=== PATIENT | female | born 1980 | race Hispanic/Latino ===

== ENCOUNTER 2023-04-03 22:59 | Emergency (ER) | payer BC ==
[2023-04-03] MEDS ORDERED: predniSONE 20 MG TAB ONE (23:43)
[2023-04-03] MEDS ORDERED: Loratadine 10 MG TAB ONE (23:43)
[2023-04-03] MEDS ORDERED: Famotidine 20 MG TAB ONE (23:43)
== END 2023-04-04 00:03 | disposition home or self-care (01) ==
LOC: MADERS 22:59
DX: L29.9 Pruritus, unspecified (principal); T50.2X5A Adverse effect of carbonic-anhydrase inhibitors, benzothiadiazides and other diuretics, initial encounter; I10 Essential (primary) hypertension
CPT/HCPCS: 99283; J7512

== ENCOUNTER 2023-08-12 00:27 | Emergency (ER) | payer BC ==
[2023-08-12] MEDS ORDERED: Mag-Al Plus 1200 MG/1200 MG/120 MG/30 ML UDCUP ONE (01:46)
[2023-08-12] MEDS ORDERED: Lidocaine 2% Viscous 100 ML BOTTLE ONE (01:48)
[2023-08-12] MEDS ORDERED: Ondansetron ODT 4 MG TAB ONE (01:51)
[2023-08-12 02:10] LABS: BHCG - Serum Negative (NEGATIVE); Pregs Control Background? CLEAR/WHITE (CLR/WHITE); Pregs Control Bar Appear? YES (CONTROL BAR)
[2023-08-12 02:14] LABS: #Basophils 0.1 thou/uL (0.0-0.2); #Eosinphils 0.2 thou/uL (0.0-0.7); #Lymphocytes 1.5 thou/uL (1.20-3.40); #Monocytes 0.5 thou/uL (0.11-0.59); %Basophils 1.4 % (0.0-1.0); %Lymphocytes 24.3 % (21.0-51.0); %Monocytes 8.6 % (0.0-10.0); %Neutrophils 62.7 % (42.0-75.0); Anisocytosis SLIGHT = 6-15 cells (100X) (0-5/hpf); Hemoglobin 9.7 g/dL (12.0-16.0); MDiff Complete? YES; Mean Corpuscular HGB CONC 29.6 g/dL (32.0-36.0); Mean Corpuscular Hemoglobin 22.2 pg (27.0-31.0); Mean Platelet Volume 11.6 fL (7.4-10.4); Microcytosis SLIGHT = 6-15 cells (100X) (0-5/hpf); Ovalocytes SLIGHT = 2-5 cells (100X) (0-1/hpf); Platelet Adequacy Comment Appears Adequate; Platelet Count 166 10x3/uL (130-400); RBC Distribution Width 15.5 % (11.5-14.5); White Blood Cell (WBC) Count 6.3 10x3/uL (4.8-10.8)
[2023-08-12 02:16] LABS: ALT (SGPT) 11 U/L (8-55); AST (SGOT) 13 U/L (5-34); Albumin 4.1 g/dL (3.5-5.0); Alkaline Phosphatase 46 U/L (40-110); Anion Gap 14 mmol/L (10-20); BUN (Urea Nitrogen) 12 mg/dL (7.0-18.7); Bilirubin, Total 0.2 mg/dL (0.2-1.2); Calc. Creatinine Clearance 0 mL/min (70-130); Calcium 8.6 mg/dL (7.8-10.44); Carbon Dioxide 23 mmol/L (22-29); Chloride 105 mmol/L (98-107); Estimated GFR 103; Globulin 2.8 g/dL (2.4-3.5); Glucose 108 mg/dL (70-105); Lipase 31 U/L (8-78); Potassium 3.7 mmol/L (3.5-5.1); Protein, Total 6.9 g/dL (6.0-8.3); Sodium 138 mmol/L (136-145); Troponin I 0.042 ng/mL (< 0.028)
[2023-08-12 05:01] LABS: Troponin I 0.033 ng/mL (< 0.028)
[2023-08-12] MEDS ORDERED: Aspirin Chewable 81 MG TAB ONE (05:58)
[2023-08-12] MEDS ORDERED: Iopamidol 370 76% 100 ML VIAL ONE (08:59)
[2023-08-12] MEDS ORDERED: Sodium Chloride 0.9% 100 ML BAG ONE (08:59)
[2023-08-12] MEDS ORDERED: Acetaminophen 500 MG TAB ONE (15:51)
== END 2023-08-12 16:55 | disposition short-term general hospital (02) ==
LOC: MADERS 00:27
DX: R07.2 Precordial pain (principal); R79.89 Other specified abnormal findings of blood chemistry; K21.9 Gastro-esophageal reflux disease without esophagitis; I10 Essential (primary) hypertension; Z79.899 Other long term (current) drug therapy
CPT/HCPCS: 36415; 71045; 71275; 74177; 80053; 83690; 83880; 84484; 84703; 85025; 85379; Q0162; Q9967

== ENCOUNTER 2024-08-29 20:27 | Emergency (ER) | payer BC | END 2024-08-29 21:17 | disposition home or self-care (01) | LOC: MADERS 20:27 | DX: I10 Essential (primary) hypertension (principal); Z79.899 Other long term (current) drug therapy | CPT/HCPCS: 99283 ==

== ENCOUNTER 2025-06-18 10:53 | Outpatient (CLI) | payer BC ==
[~2025-06-18 10:53] MED LIST: Iopamidol 370 76% 100 ML VIAL ONE
== END 2025-06-18 10:54 | disposition home or self-care (01) ==
LOC: MADRAD 10:53
PROVIDERS: ATTEND Nurse Practitioner
DX: R91.1 Solitary pulmonary nodule (principal)
CPT/HCPCS: 71260; Q9967